=== PATIENT | male | born 1975 | race Caucasian/White ===

== ENCOUNTER 2017-07-18 07:37 | Emergency (ER) | payer OTHER ==
[~2017-07-18] VITALS: Ht 180.3 cm; Wt 87.1 kg
[~2017-07-18 07:37] MED LIST: CIPRO500 MG PO; ULTRAM50 MG PO
[2017-07-18 08:15] LABS: EOSINOPHIL (%) 3.4 % (0-5); EOSINOPHIL COUNT 0.1 K/uL (0-0.3); HEMATOCRIT 42.5 % (38.0-50.0); IMMATURE GRANULOCYTE (%) 0.3 % (0.0-0.7); LYMPHOCYTE COUNT 1.2 K/uL (1.0-2.8); MCH 29.8 PG (29.0-34.0); MCHC 34.1 G/DL (30.0-36.0); MCV 87.3 FL (86-99); MEAN PLAT.VOLUME 10.3 uM^3 (9.0-12.4); MONOCYTE (%) 11.6 % (3-12); MONOCYTE COUNT 0.5 K/uL (0-0.8); NEUTROPHIL (%) 52.2 % (45-76); PLATELET COUNT 166 K/uL (156-360); RBC DIS.WIDTH-CV 11.7 % (11.8-14.6); RBC DIS.WIDTH-SD 37.3 % (39-53); RED BLOOD COUNT 4.87 M/uL (4.00-5.50); WHITE BLOOD COUNT 3.9 K/uL (4.1-10.2)
[2017-07-18 08:22] LABS: D-DIMER ELISA < 150.00 ng/mLDDU (<230)
[2017-07-18 08:31] LABS: CHLORIDE 104 mEq/L (99-109); POTASSIUM 4.1 mEq/L (3.7-5.4); SODIUM 140 mEq/L (136-147)
[2017-07-18 08:33] LABS: GLUCOSE 75 mg/dL (70-99)
[2017-07-18 08:34] LABS: ANION GAP 10 MEQ/L (2-14)
[2017-07-18 08:35] LABS: TROP-I INTERPRETATION NEGATIVE; TROPONIN-I < 0.01 ng/mL (0.0-0.30)
[2017-07-18 08:37] LABS: GFR ESTIMATE (CALCULATED) > 59 mL/min/
[2017-07-18 08:38] LABS: UREA NITROGEN (BUN) 19 mg/dL (9-23)
[2017-07-18] MEDS ORDERED: FAMOTIDINE40 MG PO (09:11)
[2017-07-18 09:36] VITALS: BP 109/76
== END 2017-07-18 09:37 | disposition home or self-care (01) ==
LOC: EME 07:37
PROVIDERS: Emergency Medicine
DX: R06.02 Shortness of breath (principal)
CPT/HCPCS: 71020; 80048; 84484; 85025; 85379; 93005; 99281; 99284